=== PATIENT | female | born 1955 | race African-American/Black ===

== ENCOUNTER 2017-10-13 13:43 | Emergency (ER) | payer OTHER ==
[2017-10-13 15:18] LABS: INFLUENZA A PATIENT NEGATIVE (NEGATIVE); INFLUENZA B PATIENT NEGATIVE (NEGATIVE)
[2017-10-13 15:19] LABS: OBC FLU VALID
[2017-10-13] MEDS: IBUPROFEN 800 MG TABLET. PO ×2 (15:42)
== END 2017-10-13 15:42 | disposition home or self-care (01) ==
LOC: ER 13:43
DX: B34.9 Viral infection, unspecified (principal); M79.7 Fibromyalgia; R11.0 Nausea
CPT/HCPCS: 87804; 87804-59; 99284

== ENCOUNTER → 2018-12-24 | Outpatient (CLI) | payer OTHER ==
[2017-10-13 14:31] VITALS: BP 148/71
[~2018-12-24] MED LIST: OSEL75CA PO
--- NOTE | 2018-12-24 09:26 | RAD ---
DATE: 12/24/2018 EXAM: DIGITAL SCREEN BILAT W/CAD HISTORY: Routine screening COMPARISON: Baseline study This study was interpreted with the benefit of Computerized Aided Detection (CAD). Breast Density: FATTY The breast parenchyma is primarily fatty replaced. Breast parenchyma level density A. FINDINGS: No suspicious breast densities are seen. Minimal benign type calcification is evident. No suspicious microcalcifications are seen. IMPRESSION: There is no mammographic evidence of malignancy in either breast. BI-RADS CATEGORY: 1 NEGATIVE RECOMMENDED FOLLOW-UP: 12M 12 MONTH FOLLOW-UP PQRS compliance statement: Patient information was entered into a reminder system with a target due date for the next mammogram. Mammography is a sensitive method for finding small breast cancers, but it does not detect them all and is not a substitute for careful clinical examination. A negative mammogram does not negate a clinically suspicious finding and should not result in delay in biopsying a clinically suspicious abnormality. "Our facility is accredited by the [employer] Mammography Program."
== END | disposition home or self-care (01) ==
LOC: MAMMO 08:44
PROVIDERS: ATTEND Family Medicine
DX: R92.2 Inconclusive mammogram (principal); Z12.31 Encounter for screening mammogram for malignant neoplasm of breast
CPT/HCPCS: 77067

== ENCOUNTER → 2021-04-06 | Outpatient (CLI) | payer OTHER ==
[2017-10-13 14:31] VITALS: BP 148/71
--- NOTE | 2021-04-06 17:16 | KCIC ---
Exam Date: 04/06/2021 3:18 PM XR KNEE 3 [id number] Indication: Reason: RIGHT KNEE PAIN / Spl. Instructions: Anterior right knee pain after a fall a few weeks ago. / History: . FINDINGS/ IMPRESSION: Small osteophytes are noted. There is mild medial compartment joint space narrowing. Alignment is m aintained. No acute fracture or dislocation. The soft tissues are within normal limits. Electronically signed by: Germain Julien MD (04/06/2021 5:13 PM) [id number]
== END ==
LOC: KCIC 15:15
PROVIDERS: ATTEND Family Medicine
DX: M25.761 Osteophyte, right knee (principal); M25.561 Pain in right knee
CPT/HCPCS: 73562